=== PATIENT | male | born 1995 | race Asian ===

== ENCOUNTER 2016-11-04 02:34 | Emergency (ER) | payer OTHER ==
[2016-11-04 02:50] LABS: Hematocrit 48 % (42-52); Hemoglobin 16.3 g/dl (14.0-18.0); Mean Corpuscular HGB Conc 34 g/dl (31-36); Mean Corpuscular Hemoglobin 31 pg (27-31); Mean Corpuscular Volume 91 fL (80-94); Mean Platelet Volume 9 um3 (7.4-10.4); Red Blood Count 5.33 10^6/ul (4.0-5.4); Red Cell Distribution Width 13 % (10.5-15); White Blood Count 12.2 10^3/ul (3.5-10.8)
[2016-11-04 03:05] LABS: BUN/Creatinine Ratio 10.5 (8-20); EGFR African American 144.4 (>60); EGFR Non-African American 112.3 (>60); Potassium 3.7 mmol/L (3.5-5.0)
--- NOTE | 2016-11-04 06:38 | ED ---
Samantha Arroyo Rebecca, scribed for Alvaro To MD on 11/04/16 at 0248 . Altered Mental Status - HPI Summary HPI Summary: Pt is a 21 y/o M BIBA who presents to ED with AMS characterized as unresponsiveness. En route to [facility] ED, pt did not respond to painful or verbal stimuli. There was debris in the back of the throat that was removed while en route, but there appears to be some stuck that EMS cannot clear. VAMP STITCHER, a 32 [address] was put in place and tolerated well, per EMS. EMS states that his friends reported the pt took 12 shots of EtOH in 2 hours tonight. Level 5 caveat due to AMS characterized as unresponsiveness. - History Of Current Complaint Chief Complaint: EDAltMentalStatus Stated Complaint: UNRESPONSIVE Hx Obtained From: EMS Hx From Patient Unobtainable Due To: Altered Mental Status - Level 5 caveat due to AMS charcaterized as unresponsiveness. Onset/Duration: Still Present Character: Responsiveness - Unresponsiveness PMH/Surg Hx/FS Hx/Imm Hx Previously Healthy: No - UNKNOWN - LEVEL 5 CAVEAT DUE TO UNRESPONSIVENESS Infectious Disease History: Unable to Obtain/Confirm Infectious Disease History: Denies: Traveled Outside the [place] in Last 30 Days - Family History Known Family History: Positive: Unknown - Level 5 caveat due to unresponsiveness - Social History Occupation: Student Alcohol Use: Presents s/p multiple EtOH drinks Review of Systems - ROS Summary Review of Systems Summary: LEVEL 5 CAVEAT DUE TO UNRESPONSIVENESS Positive: Other - Debris in the back of the throat Neurological: Other - AMS - unresponsiveness Positive: Other - EtOH intoxication - 12 shots in 2 hours All Other Systems Reviewed And Are Negative: No Physical Exam Triage Information Reviewed: Yes Vital Signs On Initial Exam: Initial Vitals Temp Pulse Resp BP Pulse Ox 98.1 F 85 12 114/54 91 11/04/16 02:37 11/04/16 02:37 11/04/16 02:37 11/04/16 02:37 11/04/16 02:37 Vital Signs Reviewed: Yes Appearance: Positive: Well-Appearing, No Pain Distress - arousable to deep stimuli Skin: Positive: Warm Head/Face: Positive: Normal Head/Face Inspection Eyes: Positive: FLORIAN ENT: Positive: Hearing grossly normal Respiratory/Lung Sounds: Positive: Clear to Auscultation, Breath Sounds Present Cardiovascular: Positive: RRR Abdomen Description: Positive: Nontender, Soft Bowel Sounds: Positive: Present Musculoskeletal: Positive: Strength/ROM Intact Diagnostics - Vital Signs Vital Signs Temp Pulse Resp BP Pulse Ox 11/04/16 02:37 98.1 F 85 12 114/54 91 - Laboratory Lab Results: Lab Results 11/04/16 11/04/16 Range/Units 02:32 02:32 WBC 12.2 H (3.5-10.8) 10^3/ul RBC 5.33 (4.0-5.4) 10^6/ul Hgb 16.3 (14.0-18.0) g/dl Hct 48 (42-52) % MCV 91 (80-94) fL MCH 31 (27-31) pg MCHC 34 (31-36) g/dl RDW 13 (10.5-15) % Plt Count 214 (150-450) 10^3/ul MPV 9 (7.4-10.4) um3 Neut % (Auto) 88.3 H (38-83) % Lymph % (Auto) 8.2 L (25-47) % [place] % (Auto) 2.7 (1-9) % Eos % (Auto) 0.4 (0-6) % Baso % (Auto) 0.4 (0-2) % Absolute Neuts (auto) 10.8 H (1.5-7.7) 10^3/ul Absolute Lymphs (auto) 1.0 (1.0-4.8) 10^3/ul Absolute Monos (auto) 0.3 (0-0.8) 10^3/ul Absolute Eos (auto) 0 (0-0.6) 10^3/ul Absolute Basos (auto) 0.1 (0-0.2) 10^3/ul Absolute Nucleated RBC 0.02 10^3/ul Nucleated RBC % 0.1 Sodium 138 (133-145) mmol/L Potassium 3.7 (3.5-5.0) mmol/L Chloride 103 (101-111) mmol/L Carbon Dioxide 23 (22-32) mmol/L Anion Gap 12 H (2-11) mmol/L BUN 9 (6-24) mg/dL Creatinine 0.86 (0.67-1.17) mg/dL Est GFR ( Amer) 144.4 (>60) Est GFR (Non-Af Amer) 112.3 (>60) BUN/Creatinine Ratio 10.5 (8-20) Glucose 130 H (70-100) mg/dL Calcium 9.0 (8.6-10.3) mg/dL Serum Alcohol 410 H* (<10) mg/dL Result Diagrams: 11/04/16 02:32 11/04/16 02:32 Lab Statement: Any lab studies that have been ordered have been reviewed, and results considered in the medical decision making process. Altered Mental Statu Course/Dx - Course Assessment/Plan: Pt is a 21 y/o M BIBA who presents to ED with AMS characterized as unresponsiveness. En route to [facility] ED, pt did not respond to painful or verbal stimuli. There was debris in the back of the throat that was removed while en route, but there appears to be some stuck that EMS cannot clear. VAMP STITCHER, a 32 NPA was put in place and tolerated well, per EMS. EMS states that his friends reported the pt took 12 shots of EtOH in 2 hours tonight. Level 5 caveat due to AMS characterized as unresponsiveness. Serum alcohol of 410. Upon EtOH metabolism, pt will be D/C to home with Dx of alcohol intoxication. - Diagnoses Discharge Diagnoses: Alcohol intoxication Discharge - Discharge Plan Condition: Improved Disposition: HOME Patient Education Materials: Alcohol Intoxication (ED) Referrals: [facility] [Primary Care Provider] - 3 Days The documentation as recorded by the Samantha de paz Rebecca accurately reflects the service I personally performed and the decisions made by me, Alvaro To MD.
[2016-11-04 08:04] VITALS: BP 121/75
--- NOTE | 2016-11-04 10:35 | RAD ---
HISTORY: Intoxication, aspiration COMPARISONS: None VIEWS: 4: Frontal dual-energy and lateral views of the chest. FINDINGS: CARDIOMEDIASTINAL SILHOUETTE: The cardiomediastinal silhouette is normal. BEATRIZ: The beatriz are normal. PLEURA: The costophrenic angles are sharp. No pleural abnormalities are noted. LUNG PARENCHYMA: The lungs are clear. ABDOMEN: The upper abdomen is clear. There is no subphrenic gas. BONES AND SOFT TISSUES: No bone or soft tissue abnormalities are noted. OTHER: None. IMPRESSION: NO ACTIVE CARDIOPULMONARY DISEASE.
== END 2016-11-04 11:32 | disposition home or self-care (01) ==
LOC: ED 02:34
DX: F10.129 Alcohol abuse with intoxication, unspecified (principal); Y90.8 Blood alcohol level of 240 mg/100 ml or more; R41.82 Altered mental status, unspecified
CPT/HCPCS: 36415; 71020; 80048; 80320; 85025; 99284; G0480